=== PATIENT | male | born 1980 | race Two or more races ===

== ENCOUNTER 2022-02-04 08:41 | Outpatient (REF) | payer OTHER, SELFPAY ==
--- NOTE | ~2022-02-04 | XR_ITS ---
EXAMINATION: X-RAY BILATERAL HANDS CLINICAL INFORMATION: Pain. COMPARISON: None TECHNIQUE: 3 views of each hand. FINDINGS: No acute fractures or malalignment. No significant degenerative changes. No chondrocalcinosis. No erosions. Normal soft tissues. XR/XR hand LT 2V IMPRESSION: Normal radiographic evaluation of the hands.
--- NOTE | ~2022-02-04 | XR_ITS ---
EXAMINATION: X-RAY BILATERAL HANDS CLINICAL INFORMATION: Pain. COMPARISON: None TECHNIQUE: 3 views of each hand. FINDINGS: No acute fractures or malalignment. No significant degenerative changes. No chondrocalcinosis. No erosions. Normal soft tissues. XR/XR hand RT 2V IMPRESSION: Normal radiographic evaluation of the hands.
[2022-02-04 10:25] LABS: Alanine Aminotransferase 46 U/L (0-40); Albumin Level 4.4 g/dL (3.5-5.0); Alkaline Phosphatase 59 U/L (39-117); Anion Gap 13 (12-20); Aspartate Amino Transferase 43 U/L (5-37); Bilirubin Total 1.1 mg/dL (0.0-1.0); Blood Urea Nitrogen 13 mg/dL (9-16); Calcium 9.6 mg/dL (8.4-10.2); Carbon Dioxide 28 mmol/L (22-29); Chloride 103 mmol/L (96-108); Cholesterol 233 mg/dL; Estimated Glomerular Filt Rate > 60; Glucose Fasting 94 mg/dL (60-99); HDL Cholesterol 53 mg/dL; LDL Cholesterol Calculated 156 mg/dl; Potassium 4.4 mmol/L (3.3-5.1); Rheumatoid Factor < 15.0 IU/mL (<15.0); Sodium 140 mmol/L (135-145); Total Protein 7.3 g/dL (6.5-8.0); Triglycerides 120 mg/dL
[2022-02-04 10:27] LABS: Erythrocyte Sedimentation Rate 2 MM/HR (0-15)
[2022-02-04 10:32] LABS: Appearance Urine Cloudy; Color Urine Yellow; Glucose Urine UA Negative (Negative); Leukocyte Esterase Urine Negative (Negative); Nitrite Urine Negative (Negative); Specific Gravity - Urine 1.025 (1.005-1.025); Urine Blood Negative (Negative); Urine Ketones Trace mg/dL (Negative); Urine Protein Negative (Neg-Trace)
[2022-02-04 10:47] LABS: TSH reflex Free T4 0.77 uIU/mL (0.32-4.0)
[2022-02-06 15:21] LABS: Scleroderma 70 Antibody <1.0 NEG AI (<1.0 NEG)
[2022-02-06 17:56] LABS: Lyme Abs Screen <0.90 index
[2022-02-07 12:31] LABS: Cyclic Citrullinated Peptide <16 UNITS
[2022-02-09 17:47] LABS: Anti Nuclear Antibody Screen POSITIVE (NEGATIVE)
== END 2022-02-04 08:42 | disposition home or self-care (01) ==
LOC: HO.LAB 08:41
PROVIDERS: PCP Family Medicine; Visit Provider Family Medicine
DX: Z00.00 Encounter for general adult medical examination without abnormal findings (principal); Z12.5 Encounter for screening for malignant neoplasm of prostate; M79.641 Pain in right hand; M79.642 Pain in left hand
CPT/HCPCS: 36415; 73120; 80053; 80061; 81003; 84153; 84443; 85652; 86038; 86039; 86141; 86200; 86235; 86431; 86617; 86618

== ENCOUNTER 2022-05-27 09:15 | Outpatient (REF) | payer OTHER, SELFPAY ==
[2022-05-27 11:10] LABS: Alanine Aminotransferase 31 U/L (0-40); Albumin Level 4.4 g/dL (3.5-5.0); Alkaline Phosphatase 56 U/L (39-117); Anion Gap 11 (12-20); Aspartate Amino Transferase 32 U/L (5-37); Bilirubin Total 0.9 mg/dL (0.0-1.0); Blood Urea Nitrogen 13 mg/dL (9-16); Calcium 9.3 mg/dL (8.4-10.2); Carbon Dioxide 26 mmol/L (22-29); Chloride 106 mmol/L (96-108); Cholesterol 188 mg/dL; Estimated Glomerular Filt Rate > 60; Glucose Fasting 78 mg/dL (60-99); HDL Cholesterol 52 mg/dL; LDL Cholesterol Calculated 124 mg/dl; Potassium 4.4 mmol/L (3.3-5.1); Sodium 139 mmol/L (135-145); Triglycerides 62 mg/dL
== END 2022-05-27 09:16 | disposition home or self-care (01) ==
LOC: HO.LAB 09:15
PROVIDERS: PCP Family Medicine; Visit Provider Family Medicine
DX: Z00.00 Encounter for general adult medical examination without abnormal findings (principal); E78.00 Pure hypercholesterolemia, unspecified; R74.8 Abnormal levels of other serum enzymes
CPT/HCPCS: 36415; 80053; 80061

== ENCOUNTER → 2022-09-07 14:21 | Outpatient (BNVA) | payer OTHER, SELFPAY | PROVIDERS: PCP Family Medicine; Visit Provider Student in an Organized Health Care Education/Training Program ==

== ENCOUNTER 2022-11-03 13:07 | Outpatient (REF) | payer OTHER, SELFPAY ==
[2022-11-03 14:04] LABS: Basophils Absolute Auto 0.1 X10*3/uL (0.0-0.2); Basophils Percent Auto 0.9 % (0-2); Eosinophils Absolute Auto 0.3 X10*3/uL (0.0-0.4); Eosinophils Percent Auto 3.8 % (0-4); Hematocrit 48.2 % (42.0-52.0); Hemoglobin 15.8 g/dl (14.0-18.0); Imm Gran Abs Auto 0.02 X10*3/uL (0.00-0.03); Imm Gran Pct Auto 0.3 % (0.0-0.4); Lymphocytes Absolute Auto 2.1 X10*3/uL (1.2-4.9); MANUAL DIFF FLAG NO; Mean Corpuscular HGB Conc 32.8 g/dl (31.0-36.0); Mean Corpuscular Hemoglobin 29.9 pg (27.0-33.0); Mean Corpuscular Volume 91.1 fL (80.0-98.0); Mean Platelet Volume 9.7 fL (9.4-12.4); Monocytes Absolute Auto 0.4 X10*3/uL (0.1-1.2); Monocytes Percent Auto 5.9 % (2-11); Neutrophils Absolute Auto 3.8 x10*3/uL (2.0-8.3); Neutrophils Percent Auto 57.1 % (45-73); Platelet Count 256 X10*3/uL (160-400); Red Blood Count 5.29 X10*6/uL (4.60-5.80); Red Cell Distribution Width 12.2 % (11.0-16.0); White Blood Count 6.6 X10*3/uL (4.8-10.8)
[2022-11-03 14:08] LABS: Appearance Urine Clear; Color Urine Yellow; Glucose Urine UA Negative (Negative); Leukocyte Esterase Urine Negative (Negative); Nitrite Urine Negative (Negative); PH 6.5 (5.0-9.0); Specific Gravity - Urine 1.015 (1.005-1.025); Urine Blood Negative (Negative); Urine Ketones Negative (Negative); Urine Protein Negative (Neg-Trace)
[2022-11-03 14:31] LABS: Creatinine Urine 174.26 mg/dL; Total Protein Urine Random < 7 mg/dL (<12)
[2022-11-03 14:31] LABS: Bacteria Urine None Seen (None Seen); Hyaline Casts Urine 0-2 /LPF (0-2); RBC Urine 0-2 /HPF (0-2); Squamous Epithelial Cell Urine 0-2 /HPF (0-2); WBC Urine 0-5 /HPF (0-5)
[2022-11-03 14:48] LABS: Alanine Aminotransferase 34 U/L (0-40); Albumin Level 4.4 g/dL (3.5-5.0); Alkaline Phosphatase 59 U/L (39-117); Anion Gap 13 (12-20); Aspartate Amino Transferase 30 U/L (5-37); Bilirubin Total 0.5 mg/dL (0.0-1.0); Blood Urea Nitrogen 12 mg/dL (9-16); C Reactive Protein < 0.10 mg/dL (< or = 0.50); Calcium 9.9 mg/dL (8.4-10.2); Carbon Dioxide 29 mmol/L (22-29); Chloride 102 mmol/L (96-108); Estimated Glomerular Filt Rate > 60; Glucose Random 79 mg/dL (60-115); Potassium 3.8 mmol/L (3.3-5.1); Sodium 140 mmol/L (135-145); Total Protein 7.7 g/dL (6.5-8.0)
[2022-11-03 14:49] LABS: Erythrocyte Sedimentation Rate 2 MM/HR (0-15)
[2022-11-06 08:53] LABS: HBS Num1 2.94 mIU/mL (0-7.99); HBc Num1 0.18 S/CO (0.00-0.79); HBsAGNum1 0.61 S/CO (0.00-0.99); Hepatitis A Antibody IgM 0.22 Index (0-0.79); Hepatitis B Core Antibody Nonreactive (Nonreactive); Hepatitis B Surface Antigen Negative (Negative); ~HepC Num1 0.09 S/CO (0.00-0.79); ~Hepatitis A Antibody IgM Nonreactive (Nonreactive); ~Hepatitis B Surface Antibody NONREACTIVE (Nonreactive); ~Hepatitis C Antibody Nonreactive (Nonreactive)
[2022-11-06 12:29] LABS: Complement C3 101 mg/dL (82-185)
[2022-11-08 13:53] LABS: IgA 220 mg/dL (47-310); IgG 1477 mg/dL (600-1640); IgM 106 mg/dL (50-300)
[2022-11-08 17:18] LABS: Anti DNA DS Antibody <1 IU/mL; Antibody to SS-A Antigen <1.0 NEG AI (<1.0 NEG); Antibody to SS-B Antigen <1.0 NEG AI (<1.0 NEG); SM/Ribonucleoprotein Ab <1.0 NEG AI (<1.0 NEG); Smith Protein <1.0 NEG AI (<1.0 NEG)
[2022-11-09 18:14] LABS: Prot Elec - Albumin 4.3 g/dL (3.8-4.8); Prot Elec - Alpha1 0.2 g/dL (0.2-0.3); Prot Elec - Alpha2 0.6 g/dL (0.5-0.9); Prot Elec - Beta 1 0.4 g/dL (0.4-0.6); Prot Elec - Beta 2 0.4 g/dL (0.2-0.5); Prot Elec - Gamma 1.3 g/dL (0.8-1.7); Prot Elec - Total Protein 7.1 g/dL (6.1-8.1)
== END 2022-11-03 13:08 | disposition home or self-care (01) ==
LOC: HO.LAB 13:07
PROVIDERS: PCP Family Medicine; Visit Provider Student in an Organized Health Care Education/Training Program
DX: Z11.59 Encounter for screening for other viral diseases (principal); M32.9 Systemic lupus erythematosus, unspecified; Z72.89 Other problems related to lifestyle
CPT/HCPCS: 36415; 80053; 81001; 82784; 84156; 84165; 85025; 85652; 86140; 86160; 86225; 86235; 86334; 86704; 86706; 86709; 86803; 87340

== ENCOUNTER 2022-11-17 11:48 | Outpatient (AMB) | payer OTHER, SELFPAY ==
--- NOTE | 2022-11-17 11:49 | A.OFFVIS_ITS ---
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 Continues to feel about the same overall. Initial history: This is a 41-year-old male who presents for evaluation of positive SALOME. States that his sister who is in her 50s was diagnosed with lupus a few years ago. About a year ago patient started having a rash that started on his left cheek then progressed to spread across his nose to the right cheek. He was evaluated by Dermatology and there was suspicion of rosacea verses less likely SLE rash. He was started on topical treatments which were not effective, he was then switched to doxycycline Twice daily which was helpful but caused worsening joint pains. Then doxycycline dose was reduced to once daily. His rosacea almost completely resolved. Over the last 10 years patient has had diffuse pain. He has pain in his neck, shoulders, elbows, hands knees. He has morning stiffness of his hands and entire body lasting 15-30 minutes. Patient does not take anything for the pain such as NSAIDs or Tylenol or hot shower. He denies any other skin rashes. States that he lost around 50 lb over the last 1-2 years through diet and exercise. Patient states that he goes to the gym almost daily, plays basketball about twice a month. There is no history of DVT/PE. No history of fevers PFSH Medical History Hypercholesterolemia Polyarthralgia Rosacea Surgical History No pertinent past surgical history Family History Mother Hypertension Hyperlipidemia Sister Lupus Social History Housing: House Patient Tobacco Use Status: Never used Tobacco e-Cigarette/Vaping Use: Never Used Second Hand Smoke Exposure: No service: No Current occupational status: employed Current occupational exposures/hazards: No Cognitive needs: No Hearing needs: No Vision needs: No Review of Systems ENT Reports neck pain Musc Reports arthralgias, Reports neck pain and Reports stiffness Physical Exam Vital Signs: Last Vital Signs Temp 97.9 F 11/17/22 11:50 Pulse 78 11/17/22 11:50 BP 112/68 11/17/22 11:50 Pulse Ox 97 11/17/22 11:50 BMI result Body Mass Index 27.2 Const General: cooperative, healthy appearing and comfortable Nutritional Appearance: overweight Orientation/consciousness: patient oriented x3 Limitations: no limitations HEENT Head: Yes normocephalic and Yes atraumatic Resp Effort & Inspection: normal respiratory effort and able to speak in complete sentences Skin General skin exam: no rashes or lesions noted Neuro General: patient oriented x3 Extrem Other: No active synovitis Right triceps tendon tenderness Negative resisted wrist extension test bilaterally Tenderness to palpation at the trapezius muscles bilaterally Negative Spurling's test bilaterally Assessment & Plan Assessment & Plan (1) SALOME positive: Code(s): R76.8 - Other specified abnormal immunological findings in serum Plan: This is a 41-year-old male who presents for evaluation of positive SALOME 1-80 mitotic intracellular pattern. Upon evaluation I do not see any evidence of autoimmune rheumatic disease. Comprehensive serology is negative and inflammatory markers are unremarkable. Clinical picture consistent with fibromyalgia Discussed management of fibromyalgia with patient. Is a noninflammatory, non- autoimmune central afferent processing disorder leading to a diffuse pain syndrome. I suggested evaluation by a psychologist to evaluate for possible underlying anxiety/depression. Try to follow sleep hygiene practices. Discuss CBT for sleep with Psychologist. Patient works out regularly at the gym lifting weights. States that some days he is unable to lift due to pain. Advised patient to continue working out and consider adding low-impact exercises such as walking, stretching, swimming, echo therapy in the days where he has pain. But keep exercising I discussed potential signs and symptoms of autoimmune rheumatic disease with patient. Patient advised to return to clinic sooner if he develops such symptoms Follow-up in 9 months Coding Level of Care Code Est Pt Level 3 (91980) Diagnoses SALOME positive R76.8
[2022-11-17 11:50] VITALS: BP 112/68; PULSE 78; TEMP 36.6; O2SAT 97; BMI 27.2
== END 2022-11-17 12:14 | disposition home or self-care (01) ==
PROVIDERS: PCP Family Medicine; Visit Provider Student in an Organized Health Care Education/Training Program
DX: R76.8 Other specified abnormal immunological findings in serum (principal)
CPT/HCPCS: 99213

== ENCOUNTER → 2022-11-17 11:48 | Outpatient (BNVA) | payer OTHER, SELFPAY | PROVIDERS: Visit Provider Student in an Organized Health Care Education/Training Program ==